=== PATIENT | male | born 1980 | race Caucasian/White ===

== ENCOUNTER → 2019-06-26 | Outpatient (CLI) | payer SELFPAY ==
[~2019-06-26] MED LIST: BACTRIM DS 8001 TAB PO; CEPHALEXIN500 M1 PO; CLOTRIM ANTIFUNGAL1% TP; FIORICET 325 MG1 TA1 PO; MOTRIN 200200 MG/TAB PO; NORCO 325 MG-51 TAB PO; PHENERGAN 25 TA25 MG PO; THE MEDICINE S200 M2 PO; TRIAMC 0.025 80 TOP; TRIAMCINOLONE A15 G3 TP; TYLENOL 500MG500 MG PO; ZOCOR5 MG PO
== END ==
LOC: COL.RAD 14:18
DX: M17.11 Unilateral primary osteoarthritis, right knee (principal)

== ENCOUNTER 2019-09-02 11:26 | Emergency (ER) | payer OTHER ==
[~2019-09-02] VITALS: Ht 177.8 cm; Wt 112.2 kg
[2019-09-02 11:53] VITALS: BP 127/81; TEMP 99.5
[2019-09-02] MEDS ORDERED: CLEOCIN HCL300 MG PO (12:31)
[2019-09-02 12:50] VITALS: PULSE 89
== END 2019-09-02 12:50 | disposition home or self-care (01) ==
LOC: COL.ER 11:26
DX: K02.9 Dental caries, unspecified (principal); E78.5 Hyperlipidemia, unspecified; F17.210 Nicotine dependence, cigarettes, uncomplicated; Z88.0 Allergy status to penicillin

== ENCOUNTER → 2019-09-24 | Outpatient (CLI) | payer OTHER ==
[~2019-09-24] MED LIST changes: +CLEOCIN HCL300 MG PO
== END ==
LOC: COL.RAD 07:30
DX: M25.461 Effusion, right knee (principal)

== ENCOUNTER 2020-01-27 10:24 | Emergency (ER) | payer SELFPAY ==
[~2020-01-27] VITALS: Ht 175.3 cm; Wt 106.8 kg
[2020-01-27 10:34] VITALS: TEMP 98.4
[2020-01-27 10:56] LABS: COLLECTION METHOD CLEAN CATCH
[2020-01-27 11:14] LABS: MUCOUS Present /lpf; PH 5 (5-8); SQUAMOUS EPITHELIAL None Seen /hpf; URINE APPEARANCE Clear; URINE BACTERIA None Seen /hpf; URINE BILIRUBIN Negative (NEGATIVE); URINE BLOOD Negative (NEGATIVE); URINE COLOR Yellow; URINE GLUCOSE Negative (NEGATIVE); URINE KETONE Trace (NEGATIVE); URINE LEUKOCYTE ESTERASE Negative (NEGATIVE); URINE NITRATE Negative (NEGATIVE); URINE PROTEIN(semi-quant) Negative (NEGATIVE); URINE RBC 0-2 /hpf; URINE UROBILINOGEN Negative (NEGATIVE)
[2020-01-27 11:17] LABS: BASO # 0.1 (0.0-0.2); BASO % 0.8 % (0.0-2.0); EOS # 0.2 (0.0-0.7); EOS % 3.3 % (0-4.0); GRAN % 63.4 % (42.2-75.2); HEMATOCRIT 44.6 % (42.0-52.0); HEMOGLOBIN 14.3 g/dl (13.5-18.0); LYMPH # 1.5 (1.2-3.4); LYMPH % 23.4 % (20.0-51.0); MEAN CELL VOLUME 83 fl (80.0-100.0); MEAN CORPUSCULAR HEMOGLOBIN 27 pg (27.0-31.0); MEAN CORPUSCULAR HGB CONC 32 g/dl (33.0-37.0); MEAN PLATELET VOLUME 9.1 fl (7.4-10.4); MONO # 0.6 (0.1-0.6); MONO % 8.8 % (1.7-9.3); PLATELET COUNT 241 K/mm3 (130-400); RED BLOOD COUNT 5.37 M/mm3 (4.20-5.60); REDCELL DISTRIBUTION WIDTH-CV 14.7 % (11.5-14.5)
[2020-01-27 11:35] LABS: ALBUMIN 4.2 gm/dL (3.5-5.0); BILIRUBIN,TOTAL 0.4 mg/dL (0.0-1.0); C-REACTIVE PROTEIN 1.2 mg/dL (0.0-0.9); CREATININE, serum 0.88 (0.66-1.25); POTASSIUM 4.1 mmol/L (3.4-5.0); TOTAL PROTEIN 7.7 gm/dL (6.4-8.2)
[2020-01-27] MEDS ORDERED: PRIL40 PO (11:51)
[2020-01-27 12:03] VITALS: BP 118/98; PULSE 77
== END 2020-01-27 12:03 | disposition home or self-care (01) ==
LOC: COL.ER 10:24
PROVIDERS: Nurse Practitioner Primary Care
DX: K29.70 Gastritis, unspecified, without bleeding (principal); E78.5 Hyperlipidemia, unspecified; F17.210 Nicotine dependence, cigarettes, uncomplicated; Z90.49 Acquired absence of other specified parts of digestive tract
CPT/HCPCS: J2405; J7030